=== PATIENT | female | born 1990 | race Caucasian/White ===

== ENCOUNTER 2017-01-05 10:26 | Inpatient (IN) | payer OTHER ==
[~2017-01-05] VITALS: Ht 170.2 cm; Wt 120.2 kg
[2017-01-05 10:48] VITALS: BP 141/97
[2017-01-05 11:08] LABS: URINE BILIRUBIN - DIPSTICK NEGATIVE (NEG); URINE BLOOD NEGATIVE (NEG)
--- OUTSIDE RECORDS SUMMARY | 2017-01-05 11:42 | External Medical Summary Rpt ---
Author Author [employer], [employer] Organization [employer] Address Unknown Phone Unavailable
--- OUTSIDE RECORDS SUMMARY | 2017-01-05 11:42 | External Medical Summary Rpt ---
Demographics Preferred Language Greek Marital Status Unknown Tenriism Affiliation Unknown Race Unknown Ethnic Group Unknown Author Author , Organization [employer] Address Unknown Phone Unavailable Purpose Continuity of Care Document - through 2016 Immunization No patient found.
--- OUTSIDE RECORDS SUMMARY | 2017-01-05 11:42 | External Medical Summary Rpt ---
Demographics Preferred Language Indonesian Marital Status Unknown Catholic Affiliation Unknown Race Unknown Ethnic Group Unknown Author Author , Organization [employer] Address Unknown Phone Unavailable Purpose Continuity of Care Document - through 2016 Immunization No patient found.
[2017-01-05 12:16] LABS: LYMPH # 1.9 K/mm3 (0.7-4.5); LYMPH % 22.7 % (10-50.0)
[2017-01-05 12:22] LABS: HEMOGLOBIN 12.2 g/dL (12.2-16.2)
--- NOTE | 2017-01-05 13:09 | ACUTE CARE PROGRESS NOTE (QUA) ---
Progress Notes Subjective Date 01/05/17 Time 1306 Assessment/Plan This inpt stay is expected to cross 2 MNs from start of care Yes (OB delivery) Comments: This 26-year-old primigravid white female is admitted at 40-2/7 weeks with spontaneous rupture of membranes at home at 0930 today and regular contractions. Her cervix on admission was 2-3 cm. Amniotomy was positive, but there was an existent bulging bag of water, which was artificially ruptured and demonstrated a large amount of moderately thin meconium. The presenting vertex was very high. An internal monitor was placed, and the patient now has an epidural in situ, which is working well. Variability is at times problematic. Plan is to observe closely. The patient has been counseled as to the possible need for section. at 2411
[2017-01-05 13:17] LABS: ABO BLOOD TYPE O; RH BLOOD TYPE POSITIVE
--- NOTE | 2017-01-05 14:03 | ACUTE CARE PROGRESS NOTE (QUA) ---
Progress Notes Subjective Date 01/05/17 Time 1401 Note Cervix is unchanged, in spite of good contractions. The presenting vertex is still very high. Variability is borderline. Patient is receiving oxygen. Plan is to observe for now. Assessment/Plan This inpt stay is expected to cross 2 MNs from start of care Yes (OB delivery) at 1402
--- NOTE | 2017-01-05 17:50 | ACUTE CARE PROGRESS NOTE (QUA) ---
Progress Notes Subjective Date 01/05/17 Time 1747 Note Cervix is now 5 cm and completely effaced, but the head is still not descended well. The baby is also demonstrated some deep decelerations lately. I've discussed this with the patient and her partner. The plan is for a primary section. Assessment/Plan This inpt stay is expected to cross 2 MNs from start of care Yes (OB delivery) at 7849
--- NOTE | 2017-01-05 19:17 | Anesthesia Record ---
Anesthesia Record Part I Total IV fluids: 1500 EBL (ml): 600 Urine Output: 100 B/P: 117/60 % SaO2: 97 Pulse: 100 Resps: 12 Temp: 98.9 Patient is: Awake, Stable Stable to PACU at: 1915 at 1916
--- NOTE | 2017-01-05 19:17 | Anesthesia Record ---
Anesthesia Record Part II Discharge time: 1944 Destination: OB PACU nurse assessment review? Yes Patient is: Awake, Stable Anesthesia complications? No at 1917
--- NOTE | 2017-01-05 19:28 | Operative Note ---
Procedure/Operative Record Date of Procedure: 01/05/17 Referring physician: Dr. Pedroza Pre-op diagnosis: 1. Term intrauterine . 2. Cephalopelvic disproportion. 3. distress. Post-op diagnosis: 1. Term intrauterine , delivered. 2. Cephalopelvic disproportion. 3. distress. 4. Meconium. -- 7/8, 8 lbs. 6 oz., 21 inch male infant, born at 1842. Procedure performed: Primary low transverse cervical section Surgeon: Dexter Henderson Podiatric Medicine Doctor(s): Dr. Lui Anesthesia: Epidural, CREATIVE RECRUITER Vero Indications: 1. Term intrauterine . 2. Cephalopelvic disproportion. 3. distress with meconium. Description of procedure: After the patient was prepped and draped in usual fashion and epidural anesthesia was activated, a low Pfannenstiel incision was made across the midline, and the fat and fascia were in the usual fashion, bleeders being clamped and coagulated along the way. The peritoneum was entered with Metzenbaum scissors, and extended above and below. The bladder peritoneum was sharply and bluntly dissected from the area of incision, and the bladder was protected with a bladder blade. The uterus was entered in low transverse fashion with a knife, and the incision was extended bluntly, bilaterally. A large amount of amniotic fluid exuded. The baby was found to be in the LOP position of the vertex and, with appropriate fundal pressure, the head was easily delivered. There was no nuchal cord. The baby's naso-and oropharynx were bulb suctioned, and then the baby was DeLee suctioned for 4 mL of meconium. The baby then cried spontaneously, as was delivered. The cord was clamped and cut, 3 vessels were noted to be within the cord, and cord blood was obtained. The cord pH was 7.20. The baby was handed into the arms of the attending web services architect, Dr. Pedroza, who assigned Apgars of 7 at 1 minute and 8 at 5 minutes to this 8 lbs. 6 oz., 21 inch male infant, born at 1842. The baby was then taken to the nursery in excellent condition, along with the father, who had been present in the operating room. The placenta was delivered manually, intact. A ring forceps was used to assure adequate drainage to the cervix; this was then passed off the field, as an unsterile instrument. The uterus was closed in 2 layers, the first a running locked suture of #1 Vicryl as an endometrial layer, followed by a running unlocked suture as a myometrial layer, imbricating over the first. The bladder peritoneum was closed with a running unlocked suture of 2-0 Vicryl. Blood and clots within swept from the gutters, and the tubes and ovaries were inspected and found to be normal. Peritoneum was grasped with 3 Anitha clamps, and closed with a running semi-locked suture of 0 Vicryl. The muscle was approximated with a running unlocked suture of 0 Vicryl. The fascia was closed with a running locked suture of #1 Vicryl. The subcutaneous fat and Chaim's fascia were closed with a running unlocked suture of 2-0 Vicryl. The skin was closed with a subcuticular suture of 3-0 Vicryl, and appropriately dressed. The sponge and needle counts were correct. The urine was clear in the Samuels catheter. The estimated blood loss was 400 mL. A pelvic examination at the close of the procedure expressed blood and clots from the involuting uterus, with IV Pitocin running. The patient tolerated the procedure well, and was taken to PACU in excellent condition. Her blood type is O positive. Her rubella titer is immune. She plans to breast-feed. EBL (ml): 400 Complications: None Specimens: None at 1927
[2017-01-05 20:50] VITALS: BP 147/82
[2017-01-06 06:55] LABS: HEMOGLOBIN 10.7 g/dL (12.2-16.2)
[2017-01-06 08:35] VITALS: BP 130/60
--- NOTE | 2017-01-06 09:05 | ACUTE CARE PROGRESS NOTE (QUA) ---
Progress Notes Subjective Date 01/06/17 Time 0903 Note This is /postop day number 1. The patient is afebrile. Vital signs stable. Wound clean. Abdomen soft. Lochia normal. Uterine fundus involuting well. Impression: Stable. She is breast-feeding, and the baby is doing well. Assessment/Plan This inpt stay is expected to cross 2 MNs from start of care Yes (OB delivery) at 0905
--- NOTE | 2017-01-06 10:59 | PHARMACY CLINIC NOTE ---
Patient Demographics Patient Demographics Admission date: 01/05/17 Date: 01/06/17 Time: 1055 Allergies Coded Allergies: Penicillins (Mild, -- 01/05/17) HEIGHT- FT: 5 IN: 7.00 K.204 VTE General Information Disclaimer The following section includes nursing documentation that has been pulled in for pharmacy review. VTE prophylaxis NQF [id number] VTE prophylaxis ordered? Yes Type of prophylaxis/treatment: ICD VTE Confirmed VTE treatment ordered? - Yes at 1052
[2017-01-06 19:45] VITALS: BP 137/63
[2017-01-07 07:30] VITALS: BP 129/58
--- NOTE | 2017-01-07 07:51 | ACUTE CARE PROGRESS NOTE (QUA) ---
Progress Notes Subjective Date 01/07/17 Time 0750 Note She is doing well this morning. She is eating and drinking and ambulating. She is breast feeding. Her lochia is normal. Her pain is reasonably well-controlled. Patient/family reports: feeling better, no complaints Objective Findings Last VS-Temp:97.7 B/P:137/63 Pulse:103 Resp:18 SaO2:100 ROOM AIR Last weight lbs:265 oz:0 K.204 Method:Stated Laboratory Tests 01/06/17 0610: Hgb 10.7 L, Hct 32.2 L 01/05/17 1852: Cord Blood pH 7.20 L 01/05/17 1130: MCH 29.9 01/05/17 1130: WBC 8.3, RBC 4.04 L, Hgb 12.2, Hct 35.9 L, MCV 88.9, RDW 13.7, Plt Count 193, MPV 8.0, Gran % 71.5, Gran # 5.9, Lymphocytes % 22.7, Monocytes % 4.6, Eosinophils % 0.9, Basophils % 0.2, Lymphocytes # 1.9, Monocytes # 0.4, Eosinophils # 0.1, Basophils # 0.0, PUBS MCHC 33.6, Antibody Screen NEGATIVE, Miscellaneous Test POSITIVE 01/05/17 1030: Membrane Rupture POSITIVE- RUPTURED, Urine Color YELLOW, Urine Appearance CLOUDY, Urine pH 7.0, Ur Specific [place] 1.010, Urine Protein NEGATIVE, Urine Ketones NEGATIVE, Urine Blood NEGATIVE, Urine Nitrate NEGATIVE, Urine Bilirubin NEGATIVE, Urine Urobilinogen 0.2, Ur Leukocyte Esterase 1+ H, Urine RBC OCC, Urine WBC 3-5, Ur Squamous Epith Cells 10-20, Urine Bacteria TRACE, Urine Glucose NEGATIVE Exam General appearance: normal appearance, alert, awake, no acute distress Reviewed: vital signs, lab results Assessment/Plan Problem List 1. Delivered by section Patient condition Improving, Stable Plan: continue current care This inpt stay is expected to cross 2 MNs from start of care Yes (OB delivery) Comments: She is doing well today. We will plan to send her home tomorrow. at 0751
[2017-01-07 19:50] VITALS: BP 140/66
--- NOTE | 2017-01-08 07:58 | ACUTE CARE PROGRESS NOTE (QUA) ---
Progress Notes Subjective Date 01/08/17 Time 0757 Note She is doing well this morning. She is eating and drinking and ambulating. She is breast-feeding. Her lochia is normal. Patient/family reports: feeling better, no complaints Objective Findings Last VS-Temp:98.0 B/P:140/66 Pulse:96 Resp:18 SaO2:100 ROOM AIR Last weight lbs:265 oz:0 K.204 Method:Stated Exam General appearance: normal appearance, alert, awake, no acute distress Reviewed: vital signs, lab results Assessment/Plan Problem List 1. Delivered by section Patient condition Improving, Stable Plan: continue current care, initiate discharge plan This inpt stay is expected to cross 2 MNs from start of care Yes (OB delivery) Comments: She is doing well this morning. We will plan to send her home today. at 0757
[2017-01-08 08:00] VITALS: BP 126/61
--- NOTE | 2017-01-08 08:02 | Discharge Summary ---
Discharge Summary Admission date: 01/05/17 Discharge date: 01/08/17 Discharge diagnoses: Term , maternal obesity, fetopelvic disproportion, section Clinical note: She is a 26-year-old 1 now para 1 who was 40 weeks and 2 days gestational age. Came in in active labor with ruptured membranes. She separately was observed throughout the day and really failed to progress beyond 3-4 cm. As result of that fetopelvic disproportion was diagnosed. She also had meconium and as result of the fetopelvic disproportion and meconium she was taken for a primary lower segment transverse section. Course in hospital: On January 05, 2017 she came in with ruptured membranes in early labor. She was augmented with oxytocin and really failed to progress beyond 3-4 cm. At as well she had meconium and was taken for a primary lower segment transverse section. She delivered a live-born male child at 6:42 PM in the evening of January 05, 2015. Baby weighed 8 lbs. 6 oz. and was 21 inches long. He had Apgars of 7 at 1 minute and 8 at 5 minutes. She has done well and has remained afebrile throughout her hospitalization. She is eating and drinking and ambulating. She is breast- feeding. Her lochia is normal. Her incision is clean and dry. She has O positive blood, she is rubella immune and was group B streptococcus negative. Her information security architect is Dr. Ratliff. Laboratory Tests 01/06/17 0610: Hgb 10.7 L, Hct 32.2 L 01/05/17 1852: Cord Blood pH 7.20 L 01/05/17 1130: MCH 29.9 01/05/17 1130: WBC 8.3, RBC 4.04 L, Hgb 12.2, Hct 35.9 L, MCV 88.9, RDW 13.7, Plt Count 193, MPV 8.0, Gran % 71.5, Gran # 5.9, Lymphocytes % 22.7, Monocytes % 4.6, Eosinophils % 0.9, Basophils % 0.2, Lymphocytes # 1.9, Monocytes # 0.4, Eosinophils # 0.1, Basophils # 0.0, PUBS MCHC 33.6, Antibody Screen NEGATIVE, Miscellaneous Test POSITIVE 01/05/17 1030: Membrane Rupture POSITIVE- RUPTURED, Urine Color YELLOW, Urine Appearance CLOUDY, Urine pH 7.0, Ur Specific [place] 1.010, Urine Protein NEGATIVE, Urine Ketones NEGATIVE, Urine Blood NEGATIVE, Urine Nitrate NEGATIVE, Urine Bilirubin NEGATIVE, Urine Urobilinogen 0.2, Ur Leukocyte Esterase 1+ H, Urine RBC OCC, Urine WBC 3-5, Ur Squamous Epith Cells 10-20, Urine Bacteria TRACE, Urine Glucose NEGATIVE Plans for ongoing care: She is discharged home to follow-up with me in approximately 2 weeks' time. Discharge medications She'll continue with her vitamins and iron. She was given a pressure for Percocet 5/325, 30 tablets as well as Motrin 400 number 40 tablets. DC/follow-up instructions She was given the usual instructions with respect to limiting her activity, driving and sexual activity. She was given instructions with respect to wound care. Condition at discharge Stable and improved at 0802
[2017-01-08] MEDS ORDERED: PERCOCET 5/3251 EACH PO (08:03)
[2017-01-08] MEDS ORDERED: MOTRIN 400MG.400 MG PO (08:04)
== END 2017-01-08 11:30 | disposition home or self-care (01) | DRG 766 ==
LOC: OBOUT 10:26 → OB 10:27 → OBOUT 11:16 → OB 11:17
PROVIDERS: Obstetrics & Gynecology
PROC: 10D00Z1 Extraction of Products of Conception, Low, Open Approach (ICD-10-PCS; principal; 2017-01-05 18:30)
DX: O65.4 Obstructed labor due to fetopelvic disproportion, unspecified (principal); Z37.0 Single live birth; Z3A.40 40 weeks gestation of pregnancy
CPT/HCPCS: C1758